=== PATIENT | male | born 1955 | race Caucasian/White ===

== ENCOUNTER 2019-08-17 11:00 | Emergency (ER) | payer BC ==
[2019-08-17 11:14] VITALS: BP 132/77; PULSE 73
--- NOTE | 2019-08-17 11:44 | EDM.PDOC ---
ED HPI GENERAL MEDICAL PROBLEM - General Chief Complaint: General Stated Complaint: DIZZY Time Seen by Provider: 08/17/19 11:10 Source of Information: Reports: Patient History Limitations: Reports: No Limitations - History of Present Illness INITIAL COMMENTS - FREE TEXT/NARRATIVE: This patient presents to the ED for evaluation of dizziness. He states he began to have episodes of dizziness the past 3 days at night only. He states they are triggered when he rolls over in bed and that when he does he becomes dizzy and unable to focus his vision. These episodes do wake him from sleep but he is able to go back to sleep when they resolve. He has not had any of these types of episodes during the day and the episodes do not interfere with his ability to function as normal during the day. This morning when he got out of the shower and was bending over to dry his feet, he did feel some dizziness with nausea. That resolved with a change in position. He has continued to feel some nausea since then. 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 He has not been able to get his INR checked recently. He denies any recent illnesses including fever, cough, shortness of breath, or sore throat. He denies any chest pain, leg pain, recent travel by air or long car rides. No recent history of falls, fainting, or trauma. Onset: Gradual Onset Date: 08/14/19 Duration: Other (episodes at night only) Location: Reports: Head, Other (dizziness) Severity: Moderate Improves with: Reports: None, Other (incidents are self-limiting and resolve in 20-30 minutes) Worsens with: Reports: None - Related Data Allergies Allergy/AdvReac Type Severity Reaction Status Date / Time No Known Allergies Allergy Verified 08/17/19 11:16 Home Meds: Home Meds Warfarin Sodium [Jantoven] 3 mg PO DAILY 05/31/16 [History] Past Medical History Other HEENT History: corrective lenses Other Cardiovascular History: pulmonarty embolism Social & Family History - Tobacco Use Smoking Status *Q: Never Smoker Second Hand Smoke Exposure: No - Caffeine Use Caffeine Use: Reports: Coffee - Recreational Drug Use Recreational Drug Use: No ED ROS GENERAL - Review of Systems Review Of Systems: Comprehensive ROS is negative, except as noted in HPI. ED EXAM, GENERAL - Physical Exam Exam: See Below Exam Limited By: No Limitations General Appearance: Alert, No Apparent Distress Eye Exam: Bilateral Eye: PERRL Ears: Normal External Exam Nose: Normal Inspection Throat/Mouth: Normal Inspection Head: Atraumatic, Normocephalic Neck: Normal Inspection, Supple, Full Range of Motion Respiratory/Chest: No Respiratory Distress, Lungs Clear, Normal Breath Sounds, No Accessory Muscle Use Cardiovascular: Normal Peripheral Pulses, Regular Rate, Rhythm Neurological: Alert, Oriented, Normal Cognition, Normal Gait, No Motor/Sensory Deficits, Other (No pronator drift, negative Rhomberg, negative heel-tobar) Psychiatric: Normal Affect Skin Exam: Warm, Dry, Intact Course - Vital Signs Last Recorded V/S: Last Vital Signs Temp 36.6 C 08/17/19 11:04 Pulse 73 08/17/19 11:04 Resp 18 08/17/19 11:04 BP 132/77 08/17/19 11:04 Pulse Ox - Orders/Labs/Meds Orders: Active Orders 24 hr Category Date Time Status EKG Documentation Completion [RC] ASDIRECTED Care 08/17/19 11:45 Active Head wo Cont [CT] Stat Exams 08/17/19 11:24 Taken Labs: Laboratory Tests 08/17/19 08/17/19 08/17/19 Range/Units 11:40 11:40 11:40 WBC 3.6 L (4.0-11.0) K/uL RBC 4.60 (4.50-6.50) M/uL Hgb 14.8 (13.0-18.0) g/dL Hct 42.1 (40.0-54.0) % MCV 92 (76-96) fL MCH 32.2 H (27.0-32.0) pg MCHC 35.2 H (31.0-35.0) g/dL RDW 13.0 (11.0-16.0) % Plt Count 199 (150-400) K/uL MPV 9.9 (6.0-10.0) fL Neut % (Auto) 53.4 (45.0-70.0) % Lymph % (Auto) 36.5 (20.0-40.0) % Vance % (Auto) 8.1 (3.0-10.0) % Eos % (Auto) 1.4 (1.0-5.0) % Baso % (Auto) 0.6 H (0.0-0.5) % Neut # (Auto) 1.92 L (2.00-7.50) K/uL Lymph # (Auto) 1.31 L (1.50-4.00) K/uL Vance # (Auto) 0.29 (0.20-0.80) K/uL Eos # (Auto) 0.05 (0.04-0.40) K/uL Baso # (Auto) 0.02 (0.02-0.10) K/uL PT 26.7 H D (9.0-11.5) sec INR 2.9 D (1.0-3.5) Sodium 141 (136-145) mmol/L Potassium 4.8 (3.5-5.1) mmol/L Chloride 105 (98-107) mmol/L Carbon Dioxide 28.3 (21.0-32.0) mmol/L Anion Gap 12.5 (5.0-15.0) mmol/L BUN 18 D (8-26) mg/dL Creatinine 1.23 (0.70-1.30) mg/dL Est Cr Clr Drug Dosing 66.59 mL/min Estimated GFR (MDRD) 59 L (>60) MLS/MIN BUN/Creatinine Ratio 14.6 (6-25) Glucose 103 H (74-100) mg/dL Calcium 8.9 (8.5-10.1) mg/dL Troponin I < 0.017 (0.000-0.060) ng/mL - Re-Assessments/Exams Free Text/Narrative Re-Assessment/Exam: 08/17/19 12:45 This patient presents for evaluation of dizziness as detailed above. The differential diagnosis for dizziness is broad and includes common etiologies such as menieres disease, labyrinthitis, benign positional vertigo, otitis media , etc. More serious etiologies considered include central etiologies such as tumor, intracerebral bleed, dissection, ischemic cerebral vascular accident. The history, physical exam including detailed neurologic exam, and workup in the ED suggests a benign vertigo today. An INR obtained today was within the prescribed parameters. Further outpatient management is indicated with vertigo medications starting with meclizine. Vertigo precautions given for home. Departure - Departure Time of Disposition: 12:45 Disposition: Home, Self-Care 01 Condition: Good Clinical Impression: Vertigo - Discharge Information Instructions: Meclizine tablets or capsules, Vertigo, [id number] Referrals: PCP,None [Primary Care Provider] - Forms: ED Department Discharge Care Plan Goals: May take Meclizine as needed for vertigo. Follow up with Dr. Walter in a week at the clinic. May need Physical Therapy if Vertigo persists. May return to ER as needed or call with questions or concerns Sepsis Event Note - Evaluation Sepsis Screening Result: No Definite Risk - Focused Exam Vital Signs: Vital Signs Temp Pulse Resp BP 08/17/19 11:04 36.6 C 73 18 132/77 Date Exam was Performed: 08/17/19 Time Exam was Performed: 12:44 - My Orders Last 24 Hours: My Active Orders 08/17/19 11:24 Head wo Cont [CT] Stat 08/17/19 11:45 EKG Documentation Completion [RC] ASDIRECTED - Assessment/Plan Last 24 Hours: My Active Orders 08/17/19 11:24 Head wo Cont [CT] Stat 08/17/19 11:45 EKG Documentation Completion [RC] ASDIRECTED
--- NOTE | 2019-08-17 13:03 | CT ---
DATE OF SERVICE: 08/17/2019 CLINICAL DATA: Dizziness Unenhanced brain CT: Multi slice acquisition through the brain without IV contrast was performed. No priors. There is diffuse cerebral atrophy. There are periventricular lucencies bilaterally consistent with small vessel ischemic change. No masses or mass effect. No intracranial hemorrhage. No evidence of acute or subacute infarct. No osseous abnormalities. Impression: No acute intracranial abnormalities. MTDD
== END 2019-08-17 12:33 | disposition home or self-care (01) ==
LOC: LB.ED 11:00
DX: R42 Dizziness and giddiness (principal); I26.99 Other pulmonary embolism without acute cor pulmonale; Z79.01 Long term (current) use of anticoagulants
CPT/HCPCS: 36415; 70450; 80048; 84484; 85025; 85610; 93005; 99284-25

== ENCOUNTER 2021-03-30 09:31 | Day surgery (SDC) | payer BC, MEDICARE ==
[~2021-03-30 09:31] MED LIST: Metoclopramide 10 MG/2 ML SDV IV PRN; Sodium Chloride 0.9% 1,000 ML IV SCH
[2021-03-30] MEDS ORDERED: Sodium Chloride 0.9% 1,000 ML IV SCH (10:00)
[2021-03-30] MEDS ORDERED: Metoclopramide 10 MG/2 ML SDV IVPUSH PRN (10:09)
[2021-03-30] MEDS ORDERED: Propofol 1,000 MG/100 ML SDV ONE (11:20)
[2021-03-30 11:32] VITALS: PULSE 58
[2021-03-30 11:37] VITALS: BP 119/74
== END 2021-03-30 13:50 | disposition home or self-care (01) ==
LOC: LB.SDS 09:31
PROVIDERS: ATTEND Surgery
DX: D12.5 Benign neoplasm of sigmoid colon (principal); Z86.711 Personal history of pulmonary embolism
CPT/HCPCS: 88305; J2704; J2765; J7030